=== PATIENT | female | born 1940 | race African-American/Black ===

== ENCOUNTER 2017-10-28 08:53 | Emergency (ER) | payer MEDICARE, OTHER ==
[2017-10-28] MEDS ORDERED: NS 0.9% 1000 ML* 1,000 ML IV ONE (09:33)
[2017-10-28 10:31] LABS: Hematocrit 39 % (35-47); Hemoglobin 12.9 g/dl (12.0-16.0); Mean Corpuscular HGB Conc 33 g/dl (31-36); Mean Corpuscular Hemoglobin 29 pg (27-31); Mean Corpuscular Volume 86 fL (80-97); Mean Platelet Volume 9 um3 (7.4-10.4); Platelet Count 152 10^3/ul (150-450); Red Blood Count 4.47 10^6/ul (4.0-5.4); Red Cell Distribution Width 14 % (10.5-15); White Blood Count 3.2 10^3/ul (3.5-10.8)
--- NOTE | 2017-10-28 10:44 | RAD ---
Indication: Multiple hours abdominal pain. Comparison: May 01, [address] Technique: RIGHT upper quadrant ultrasound. Report: Appropriate direction flow documented in the portal and hepatic veins. 13.4 cm liver is heterogeneously echogenic. Negative for focal hepatic lesions. Negative for intrahepatic biliary dilatation. 5.4 mm common bile duct. Adequately distended gallbladder with normal 2.2 mm wall is without pathologic finding. Negative for sonographic Wright's sign. The pancreas is obscured secondary to bowel gas and body habitus limiting assessment. Negative for ascites. 9.7 x 3.6 x 5.3 cm RIGHT kidney is unremarkable. IMPRESSION: 1. Heterogeneously increased hepatic echogenicity consistent with fatty infiltration. 2. Negative for gallbladder pathology or biliary dilatation. 3. The pancreas could not be visualized due to body habitus and visualized due to body habitus limiting acoustic window.
[2017-10-28 10:57] LABS: EGFR Non-African American 68.6 (>60)
[2017-10-28] MEDS ORDERED: Iohexol 300* (CONTRAST) 10 ML SDV IV ONE (11:38)
[2017-10-28 11:39] LABS: ABS Basophils 0 10^3/ul (0-0.2); ABS Eosinophils 0 10^3/ul (0-0.6); ABS Lymphocytes 0.7 10^3/ul (1.0-4.8); ABS Monocytes 0.2 10^3/ul (0-0.8); ABS Neutrophils 2.2 10^3/ul (1.5-7.7); ABS Nucleated RBC 0 10^3/ul; Eosinophil % 0.8 % (0-6); Lymphocyte % 23.2 % (25-47); Nucleated Red Blood Cells % 0.1
[2017-10-28 12:30] LABS: Urine Appearance Cloudy; Urine Blood Negative (Negative); Urine Color Yellow; Urine Ketones 1+ (Negative); Urine Protein Negative (Negative); Urine Specific Gravity 1.019 (1.010-1.030); Urine Urobilinogen Negative (Negative)
--- NOTE | 2017-10-28 13:18 | RAD ---
CLINICAL HISTORY: Abdominal pain COMPARISON: May 01, 2015 TECHNIQUE: Multiple contiguous axial CT scans were obtained of the abdomen and pelvis after the administration of intravenous contrast. Coronal and sagittal multiplanar reformations are submitted for review. Oral contrast was administered. Delayed images were obtained through the abdomen and pelvis. FINDINGS: LUNG BASES: The lung bases are clear. LIVER: The liver is diffusely low in attenuation compared to the spleen. There are no focal hepatic parenchymal masses. BILE DUCTS: There is no intrahepatic or extrahepatic biliary dilatation. GALLBLADDER: The gallbladder is normal, without pericholecystic inflammatory change. PANCREAS: The pancreas is normal, without mass or ductal dilatation. SPLEEN: Normal in size and appearance. UPPER GI TRACT: Evaluation of the gastrointestinal tract is limited by incomplete gastric distention. The upper GI tract is unremarkable. SMALL BOWEL AND MESENTERY: The small bowel is normal in contour, course, and caliber. There is no obstruction or dilatation. COLON: The colon is normal in contour, course, caliber. There is no pericolonic inflammatory change. The appendix is not clearly visualized. There is no inflammatory change within the right lower quadrant. ADRENALS: Normal bilaterally. KIDNEYS: The kidneys are normal in shape, size, contour, and axis. There is no hydronephrosis or nephrolithiasis. BLADDER: The bladder is incompletely distended but is grossly normal. PELVIC ORGANS: The pelvic organs are not visualized. AORTA: The aorta is normal. IVC: Unremarkable LYMPH NODES: There is no lymphadenopathy by size criteria. ABDOMINAL WALL: There is no evidence for abdominal wall hernia. BONES AND SOFT TISSUES: There are mild diffuse degenerative changes. OTHER: None IMPRESSION: NO OBSTRUCTION. NO ACUTE CT PATHOLOGY OF THE VISUALIZED ABDOMEN OR PELVIS.
[2017-10-28 13:56] VITALS: BP 144/69
--- NOTE | 2017-10-28 18:34 | ED ---
Pito Pugh Angela, scribed for Arnaldo Rubi MD on 10/28/17 at 0934 . Abdominal Pain/Female - HPI Summary HPI Summary: This pt is a 77 y/o female [facility]/o abdominal pain and right shoulder pain. She reports abdominal discomfort began around 04:00 this morning but thought it was indigestion and took OTC medication for this. Her abdominal pain began at 06:00 this morning. Pt describes her pain as cramping. Pt notes associated nausea. She denies vomiting, fever. PMHx: appendectomy. Pt still has her gallbladder. Allergic to Codeine and Morphine - History of Current Complaint Chief Complaint: EDAbdPain Stated Complaint: ABD PAIN Time Seen by Provider: 10/28/17 09:15 Hx Obtained From: Patient Onset/Duration: Lasting Hours, Still Present Timing: Hours Severity Currently: Severe Pain Intensity: 10 Pain Scale Used: 0-10 Numeric Location: Diffuse Radiates: No Character: Cramping Aggravating Factor(s): Nothing Alleviating Factor(s): Nothing Associated Signs and Symptoms: Positive: Nausea. Negative: Fever, Vomiting Allergies/Adverse Reactions: Allergies Allergy/AdvReac Type Severity Reaction Status Date / Time MS Codeine [Codeine] AdvReac Nausea And Verified 05/11/15 12:02 Vomiting MS Morphine [Morphine] AdvReac Nausea And Verified 05/11/15 12:02 Vomiting Home Medications: Home Medications Ibuprofen TAB* [Advil TAB*] 200 mg PO Q8H PRN 10/28/17 [History Confirmed ] Travoprost Z 0.004% OPHTH (NF) [Travatan Z 0.004% OPTH (NF)] 1 drop BOTH EYES DAILY 10/28/17 [History Confirmed 10/28/17] PMH/Surg Hx/FS Hx/Imm Hx Endocrine/Hematology History: Denies: Hx Diabetes, Hx Thyroid Disease Cardiovascular History: Denies: Hx Hypertension Respiratory History: Denies: Hx Asthma, Hx Chronic Obstructive Pulmonary Disease (COPD) GI History: Denies: Hx Ulcer History: Reports: Hx Kidney Stones - RIGHT 03/28 - Surgical History Surgery Procedure, Year, and Place: Hysterectomy, Arthroscopy both knees Infectious Disease History: No Infectious Disease History: Denies: Hx Clostridium Difficile, Hx Hepatitis, Hx Human Immunodeficiency Virus (HIV), Hx of Known/Suspected MRSA, Hx Shingles, Hx Tuberculosis, Hx Known/ Suspected VRE, Hx Known/Suspected VRSA, History Other Infectious Disease, Traveled Outside the [place] in Last 30 Days - Family History Family History: Maternal grandmother, mother and sister: Breast CA. Father: colon CA. Mother and sister: arthritis - Social History Alcohol Use: Rare Substance Use Type: Reports: None Smoking Status (MU): Never Smoked Tobacco Review of Systems Negative: Fever, Chills Positive: Abdominal Pain, Nausea. Negative: Vomiting Musculoskeletal: Other - right shoulder pain All Other Systems Reviewed And Are Negative: Yes Physical Exam - Summary Physical Exam Summary: VITAL SIGNS: Reviewed. GENERAL: Patient is a well-developed and nourished female who is lying comfortable in the stretcher. Patient is not in any acute respiratory distress. HEAD AND FACE: Normocephalic and atraumatic. EYES: PERRLA, EOMI x 2, No injected conjunctiva. EARS: Hearing grossly intact. Ear canals and tympanic membranes are WNL. MOUTH: Oropharynx within normal limits. NECK: Supple, trachea is midline, no adenopathy, no JVD. CHEST: Symmetric, no tenderness at palpation LUNGS: Clear to auscultation bilaterally. No wheezing or crackles. CVS: RRR, S1 and S2 present, no murmurs or gallops appreciated. ABDOMEN: Soft. There is positive tenderness in the RUQ and epigastric area. There is mild guarding but no rebound. No signs of distention. Positive bowel sounds. No masses palpated. No abdominal bruit or pulsations. EXTREMITIES: FROM in all major joints, no edema, no cyanosis or clubbing. NEURO: Alert and oriented x 3. No acute neurological deficits. Speech is normal. SKIN: Dry and warm Triage Information Reviewed: Yes Vital Signs On Initial Exam: Initial Vitals Temp Pulse Resp BP Pulse Ox 98.3 F 66 20 162/79 99 10/28/17 09:00 10/28/17 09:00 10/28/17 09:00 10/28/17 09:00 10/28/17 09:00 Vital Signs Reviewed: Yes Diagnostics - Vital Signs Vital Signs Temp Pulse Resp BP Pulse Ox 10/28/17 09:00 98.3 F 66 20 162/79 99 - Laboratory Result Diagrams: 10/28/17 10:18 10/28/17 10:18 Lab Statement: Any lab studies that have been ordered have been reviewed, and results considered in the medical decision making process. - CT Abdomen/Pelvis CT CT Interpretation: No Acute Changes - IMPRESSION: No obstructoin. No acute CT pathology of the visualized abdomen or pelvis. Dr. Rubi has reviewed this radiology report. CT Interpretation Completed By: Radiologist - Ultrasound No standard instances Ultrasound Interpretation: Positive (See Comments) - IMPRESSION: 1. Heterogenously increased hepatic echogenicity consistent with fatty infiltration. 2. Negative for gallbladder pathology or biliary dilatation. 3. The pancreas could not be visualized due to body habitus and visualized due to body habitus limiting acoustic window. Dr. Rubi has reviewed this radiology report. Ultrasound Interpretation Completed By: Radiologist - EKG 09:33 Cardiac Rate: NL EKG Rhythm: Sinus Rhythm - at 68 bpm EKG Interpretation: No ST elevation. T wave inversion in III. Abdominal Pain Fem Course/Dx - Course Course Of Treatment: This pt is a 77 y/o female [facility]/o abdominal pain and right shoulder pain. She reports abdominal discomfort began around 04:00 this morning but thought it was indigestion and took OTC medication for this. Her abdominal pain began at 06:00 this morning. Pt describes her pain as cramping. Pt notes associated nausea. She denies vomiting , fever. PMHx: appendectomy. Pt still has her gallbladder. Allergic to Codeine and Morphine. Test results are without any significant abnormalities. Urinalysis is contaminated. RUQ ultrasound is negative for gallstones or acute cholecystitis. Abdomen/pelvis CT is negative for an acute pathology. The pts symptoms have improved. Pt has no complains. Pt is ambulating and eating and drinking without any nausea or vomiting. Pts will be discharged to home with a follow up from PCP. Pt is hemodynamically stable, alert and oriented x3. She was instructed to return to the ED for any worsening symptoms. - Diagnoses Provider Diagnoses: Abdominal pain Discharge - Discharge Plan Condition: Stable Disposition: HOME Patient Education Materials: Abdominal Pain (ED) Referrals: Glenn Valente MD [Primary Care Provider] - 3 Days Additional Instructions: Please follow up with your primary care provider. RETURN TO THE ED FOR ANY WORSENING SYMPTOMS. The documentation as recorded by the Pito christy Angela accurately reflects the service I personally performed and the decisions made by me, Arnaldo Rubi MD.
== END 2017-10-28 14:01 | disposition home or self-care (01) ==
LOC: ED 08:53
DX: R10.9 Unspecified abdominal pain (principal); R11.0 Nausea; M25.511 Pain in right shoulder
CPT/HCPCS: 36415; 74177; 76705; 80053; 81003; 81015; 82140; 82550; 83605; 83690; 83735; 83880; 84484; 85025; 86140; 87077; 87086; 93005; 99282; Q9967

== ENCOUNTER 2019-05-26 16:02 | Emergency (ER) | payer MEDICARE, OTHER ==
--- OUTSIDE RECORDS SUMMARY | 2019-05-26 16:12 | XMS REPORT | Summary of Care ---
:1940 Author Organization [facility] Address [address] [place] [address] Care Team Providers Name Role Phone Glenn Valente MD Primary Care Provider Reason for Visit Reason Comments Urinary Frequency c/o increase frequency, nocturia and left flank pain past several days, unable to give an urine sample as just went prior to coming here [employer] discuss her Encounter Details Date Type Department Care Team Description 04/27/2019 Office Visit [place] [facility] Glenn Valente MD Urinary frequency (Primary Dx); Medicine [address] [facility] Upper back pain on left side [address] [place] [address] [place] [address] [phone] Allergies Active Allergy Reactions Severity Noted Date Comments Cod-Na Metabisulfite GI Reaction, Unknown Reaction 09/01/2007 Morphine GI Reaction 09/24/2007 documented as of this encounter (statuses as of 05/02/2019) Medications Medication Sig Dispensed Refills Start Date End Date Status TRAVATAN 0.004 % Place 1 Drop 0 Active Ophthalmic in both eyes Solution DAILY. COLACE 100 MG Oral Take 100 mg by 0 Active Cap mouth DAILY NEEDED. sulfamethoxazole-t Take 1 Tab by 14 Tab 0 04/27/2019 Active rimethoprim mouth TWICE (BACTRIM DS, DAILY. SEPTRA DS) 800-160 MG Oral Tab Papaya Oral Tab Take 2-4 Tabs 0 04/27/2019 Discontinued by mouth DAILY. ibuprofen (MOTRIN) Take 1 Tab by 60 Tab 0 08/06/2016 04/27/2019 Discontinued 600 MG Oral Tab mouth EVERY EIGHT HOURS NEEDED for Pain. Take 1 po bid with meals ibuprofen (MOTRIN) Take 1 Tab by 120 Tab 0 11/05/2018 04/27/2019 Discontinued 600 MG Oral Tab mouth EVERY SIX HOURS NEEDED (pain). documented as of this encounter (statuses as of 05/02/2019) Active Problems Problem Noted Date High cholesterol 06/14/2018 Chronic pain of left knee 08/06/2016 Osteopenia 09/24/2007 Irritable bowel syndrome 09/01/2007 Degeneration of cervical intervertebral disc 08/27/2006 Sarcoidosis 08/27/2006 Colon polyp Overview: tubular adenoma 2006 documented as of this encounter (statuses as of 05/02/2019) Immunizations Name Administration Dates Next Due Influenza Vaccine Whole 08/27/2006 Pneumococcal Conjugate Vaccine 08/14/2005 documented as of this encounter Social History Tobacco Use Types Packs/Day Years Used Date Never Smoker Smokeless Tobacco: Never Used Alcohol Use Drinks/Week oz/Week Comments Yes 7 Standard drinks or equivalent 7.0 Sex Assigned at Date Recorded Not on file Job Start Date Occupation Industry Not on file Not on file Not on file Travel History Travel Start Travel End No recent travel history available. documented as of this encounter Last Filed Vital Signs Vital Sign Reading Time Taken Comments Blood Pressure 122/70 04/27/2019 4:36 PM EDT Pulse 66 04/27/2019 4:36 PM EDT Temperature 36.2 04/27/2019 4:36 PM EDT C (97.1 F) Respiratory Rate - - Oxygen Saturation - - Inhaled Oxygen Concentration - - Weight 62.1 kg (137 lb) 04/27/2019 4:36 PM EDT Height 162.6 cm (5' 4") 04/27/2019 4:36 PM EDT Body Mass Index 23.52 04/27/2019 4:36 PM EDT documented in this encounter Patient Instructions Patient InstructionsGlenn Valente MD - 04/27/2019 4:40 PM EDTContinue same medicines, but also take antibiotic trimethoprim / sulfa, 1 tab twice a day for 1 week Return for upper back xrays. I'll notify you of the results with a letter or an e-mail (if you are registered with the [employer] service). We may also need to do upper back MRI, but let's see what the antibiotic accomplishes, and what the upper back xrays show. documented in this encounter Progress Notes Glenn Valente MD - 04/27/2019 4:40 PM EDT PATIENT: Gaby Plata : 1940 DATE OF SERVICE: 04/27/2019 CHIEF COMPLAINT: Chief Complaint Patient presents with Urinary Frequency c/o increase frequency, nocturia and left flank pain past several days, unable to give an urine sample as just went prior to coming here [employer] discuss her Subjective HISTORY OF PRESENT ILLNESS: Gaby Plata is a 78-y.o. female. HPI Under extra stress with caring for her chronically ill who has Parkinson 's disease and multiple myeloma. Chronic frequency. Wears a pad. Frequency much worse in last few days. "Not all the time" with burning. Not today. No blood. Urine more pale, trying to drink more. No fever, chills, sweats. More gas, taking simethacone. Has lost weight, not eating as much. prob due to stress. Husb with myeloma, Parkinson's. Has chronic left sided back pain, worse with siting, sometimes has to lie down. Getting worse, now can't drive nearly as far without getting pain. Past Medical History: Diagnosis Date Colon polyp tubular adenoma 2006 Degeneration of cervical intervertebral disc 08/27/[address] Sanchez Irritable bowel syndrome 09/01/2007 Postmenopausal Sarcoidosis 08/27/2006 confirmed by skin biopsy, mediastinal l/nodes Family History Problem Relation Age of Onset Cancer Mother 60s Stroke Mother Hypertension Mother Breast Cancer Mother Cancer Father colon cancer Colon Cancer Father Cancer Sister breast cancer Stroke Sister Breast Cancer Maternal Grandmother 80s Breast Cancer Sister 60s Current Outpatient Medications Medication Sig COLACE 100 MG Oral Cap Take 100 mg by mouth DAILY NEEDED. TRAVATAN 0.004 % Ophthalmic Solution Place 1 Drop in both eyes DAILY. No current facility-administered medications for this visit. Allergies Allergen Reactions Cod-Na Metabisulfite GI Reaction and Unknown Reaction Morphine GI Reaction Social History Socioeconomic History Marital status: Spouse name: Not on file Number of children: Not on file Years of education: Not on file Highest education level: Not on file Occupational History Not on file Social Needs Financial resource strain: Not on file Food insecurity: Worry: Not on file Inability: Not on file Transportation needs: Medical: Not on file Non-medical: Not on file Tobacco Use Smoking status: Never Smoker Smokeless tobacco: Never Used Substance and Sexual Activity Alcohol use: Yes Alcohol/week: 7.0 standard drinks Types: 7 Standard drinks or equivalent per week Drug use: No Sexual activity: Not Currently Lifestyle Physical activity: Days per week: Not on file Minutes per session: Not on file Stress: Not on file Relationships Social connections: Talks on phone: Not on file Gets together: Not on file Attends sabianist service: Not on file Active member of club or organization: Not on file Attends meetings of clubs or organizations: Not on file Relationship status: Not on file Intimate partner violence: Fear of current or ex partner: Not on file Emotionally abused: Not on file Physically abused: Not on file Forced sexual activity: Not on file Other Topics Concern Not on file Social History Narrative Not on file Over the last 2 weeks, have you been feeling down, depressed, anxious, or hopeless?: 2 Over the past 2 weeks, have you felt little interest or pleasure in doing things ?: 0 REVIEW OF SYSTEMS: Review of Systems Constitutional: Positive for malaise/fatigue. Negative for fever and weight loss. HENT: Negative for congestion. Eyes: Negative for blurred vision. Respiratory: Negative for shortness of breath. Cardiovascular: Negative for chest pain. Gastrointestinal: Negative for abdominal pain and diarrhea. Genitourinary: Positive for frequency. Musculoskeletal: Positive for back pain. Neurological: Negative for dizziness. Endo/Heme/Allergies: Negative for polydipsia. Psychiatric/Behavioral: Negative for depression. Objective PHYSICAL EXAM: VITALS: BP 122/70 | Pulse 66 | Temp 97.1 F (36.2 C) | Ht 5' 4" ( 1.626 m) | Wt 137 lb (62.1 kg) | BMI 23.52 kg/m Body mass index is 23.52 kg/m. Physical Exam Alert, oriented, in no acute distress. Vitals as above. HEENT: Normocephalic, atraumatic. COURTNEY, EOMI. Mouth and ears unremarkable. Neck: No palpable lymphadenopathy in the submandibular, submental, anterior cervical, posterior cervical, or occipital chains, nor in the supraclavicular spaces. No JVD, thyromegaly. LUNGS: clear. Tender left subscapular area and paravertebral area in the mid thoracic spine HEART: Regular rate and rhythm. ABDOMEN: positive bowel sounds, soft, nontender, no hepatosplenomegaly, masses or bruits. EXTREMITIES: no cyanosis, clubbing, or edema. Urinalysis with white cells, trace of protein Office Visit on 04/27/2019 Component Date Value Ref Range Status URINE GLUCOSE (POCT) 04/27/2019 Negative Negative mg/dl Final URINE BILIRUBIN (POCT) 04/27/2019 Small* Negative Final Urine Ketones (POCT) 04/27/2019 Trace* Negative Final URINE SPECIFIC GRAVITY (POCT) 04/27/2019 1.025 1.005 - 1.030 Final URINE BLOOD (POCT) 04/27/2019 Small* Negative Final URINE PH (POCT) 04/27/2019 5.0 5.0 - 8.0 Final URINE PROTEIN (POCT) 04/27/2019 Trace* Negative mg/dl Final URINE UROBILINOGEN (POCT) 04/27/2019 0.2 0.2 - 1.0 mg/dl Final URINE NITRITES (POCT) 04/27/2019 Negative Negative Final URINE LEUKOCYTES (POCT) 04/27/2019 Moderate* Negative Cells/uL Final Urine Culture 04/27/2019 No growth of clinical significance Final ASSESSMENT / IMPRESSION: ICD-9-CM ICD-10-CM 1. Urinary frequencytreat with Bactrim 788.41 R35.0 URINE DIP MANUAL (AMB POCT) URINE CULTURE (C&S) URINE CULTURE (C&S) 2. Upper back pain on left sidecheck x-rays 724.5 M54.9 XR THORACIC SPINE 3 VIEWS (STANDARD) Patient Instructions Continue same medicines, but also take antibiotic trimethoprim / sulfa, 1 tab twice a day for 1 week Return for upper back xrays. I'll notify you of the results with a letter or an e-mail (if you are registered with the [employer] communication service). We may also need to do upper back MRI, but let's see what the antibiotic accomplishes, and what the upper back xrays show. Author: Glenn Valente MD 04/27/2019 17:02 documented in this encounter Plan of Treatment Date Type Specialty Care Team Description 10/25/2019 Lab Internal Medicine 11/01/2019 Office Visit Internal Medicine Glenn Valente MD [address] [place] [address] [phone] Health Maintenance Due Date Last Done Comments ZOSTER IMMUNIZATION SERIES 1990 (1 of 2) PNEUMOCOCCAL 65+YRS (2 of 2 08/14/2006 08/14/2005 - PPSV23) MEDICARE ANNUAL WELLNESS 02/02/2016 02/01/2015 (Previously VISIT completed), 05/31/2013, 04/04/2011 INFLUENZA VACCINE (#1) 2019 08/27/2006 DEPRESSION SCREENING 04/27/2020 04/27/2019 FALL RISK ASSESSMENT 04/27/2020 04/27/2019, 04/27/2019 OSTEOPOROSIS SCREENING 06/07/2023 06/07/2013, 12/13/2007 LIPID DISORDER SCREENING 09/17/2023 09/17/2018, 10/08/2017, 10/10/2014, Additional history exists HPV IMMUNIZATION SERIES Aged Out No longer eligible based on patient's age to complete this topic MENINGOCOCCAL VACCINE IMM Aged Out No longer eligible based on patient's age to complete this topic documented as of this encounter Procedures Procedure Name Priority Date/Time Associated Diagnosis Comments URINE DIP MANUAL Routine 04/27/2019 5:20 PM Urinary frequency Results for this (AMB POCT) EDT procedure are in the results section. URINE CULTURE (C&S) Routine 04/27/2019 5:20 PM Urinary frequency Results for this EDT procedure are in the results section. documented in this encounter Results XR THORACIC SPINE 3 VIEWS (STANDARD) (04/28/2019 2:03 PM EDT) Specimen Impressions Performed At No evidence of fracture or subluxation is seen. Some endplate changes are seen without evidence of compression deformity. Mild dextroscoliosis of thoracic spine. Urgency: Routine. This is a routine medical imaging report.: Recommendation: No specific imaging recommendation. Signed by Javi Payton MD, MHA, FCPS on 05/02/2019 11:53 AM Narrative Performed At Procedure(s): XR THORACIC SPINE 3 VIEWS (STANDARD) Date of service: 04/28/2019 1:56 PM Provided clinical information: 78 years, Female, "upper back and left scapular pain" Procedure and materials: Standard protocol. Comparison studies: Chest x-ray of 02/01/2015 03 VIEWS OF THE THORACIC SPINE: Observation: AP, lateral, and swimmer's views of the thoracic spine demonstrate no evidence of fracture, subluxation or destructive osseous pathology. Mild dextroscoliosis is seen of thoracic spine. The vertebral bodies, disc spaces, facet joints, spinal canal and neural foramen are within normal limits. The paravertebral soft tissues are intact. Visualized lung appears clear. Atherosclerotic disease of the aorta. Tracheal cartilage calcification is seen Procedure Note Interface, Rad Results - 05/02/2019 11:55 AM EDT Procedure(s): XR THORACIC SPINE 3 VIEWS (STANDARD) Date of service: 04/28/2019 1:56 PM Provided clinical information: 78 years, Female, "upper back and left scapular pain" Procedure and materials: Standard protocol. Comparison studies: Chest x-ray of 02/01/2015 03 VIEWS OF THE THORACIC SPINE: Observation: AP, lateral, and swimmer's views of the thoracic spine demonstrate no evidence of fracture, subluxation or destructive osseous pathology. Mild dextroscoliosis is seen of thoracic spine. The vertebral bodies, disc spaces, facet joints, spinal canal and neural foramen are within normal limits. The paravertebral soft tissues are intact. Visualized lung appears clear. Atherosclerotic disease of the aorta. Tracheal cartilage calcification is seen IMPRESSION No evidence of fracture or subluxation is seen. Some endplate changes are seen without evidence of compression deformity. Mild dextroscoliosis of thoracic spine. Urgency: Routine. This is a routine medical imaging report.: Recommendation: No specific imaging recommendation. Signed by Javi Payton MD, MHA, FCPS on 05/02/2019 11:53 AM URINE CULTURE (C&S) (04/27/2019 5:20 PM EDT) Urine Culture No growth of clinical [facility] Specimen Urine Performing Organization Address City/State/Zipcode Phone Number [facility] [address] [place] [address] URINE DIP MANUAL (AMB POCT) (04/27/2019 5:20 PM EDT) URINE GLUCOSE (POCT) Negative Negative mg/dl [facility] POCT URINE BILIRUBIN Small (A) Negative [facility] (POCT) POCT Urine Ketones (POCT) Trace (A) Negative [facility] POCT URINE SPECIFIC 1.025 1.005 - 1.030 [facility] GRAVITY (POCT) POCT URINE BLOOD (POCT) Small (A) Negative [facility] POCT URINE PH (POCT) 5.0 5.0 - 8.0 [facility] POCT URINE PROTEIN (POCT) Trace (A) Negative mg/dl [facility] POCT URINE UROBILINOGEN 0.2 0.2 - 1.0 mg/dl [facility] (POCT) POCT URINE NITRITES Negative Negative [facility] (POCT) POCT URINE LEUKOCYTES Moderate (A) Negative [facility] (POCT) Cells/uL POCT Specimen Urine Performing Organization Address City/State[facility] [address] [place] [address] documented in this encounter Visit Diagnoses Diagnosis Urinary frequency - Primary Upper back pain on left side Pain in thoracic spine documented in this encounter Insurance Payer Benefit Plan / Subscriber ID Effective Dates Phone Address Type Group MEDICARE MEDICARE PART A xxxxxxxxxxx 2005-Presen Medicare & B t AETNA COMMERCIAL AETNA xxxxxxxxxx 2009-Present [employer] (Work) documented as of this encounter
--- NOTE | 2019-05-26 17:31 | ED ---
Back Pain - HPI Summary HPI Summary: 78 yo female presents to [facility] ED with a soft tissue lump on her left midback. She tells me that she has a history of chronic mid and lower back pain for years. She had an MRI about a week ago and a few days ago was told that the results were "age related" and there was nothing acute. She was referred to a pain clinic for this and is awaiting an appointment. Today she noticed a lump to her left mid back that concerned her. This is not painful, but she has not noticed this before and is concerned this is related to her back. She denies new injury, numbness, tingling, saddle anesthesia, loss of bowel/bladder control. No personal hx of cancer. - History of Current Complaint Chief Complaint: EDBackInjuryPain Stated Complaint: LUMP ON BACK PER PT Time Seen by Provider: 05/26/19 17:31 Hx Obtained From: Patient Timing: Constant Severity Initially: Moderate Severity Currently: Moderate Pain Intensity: 5 Pain Scale Used: 0-10 Numeric - Allergies/Home Medications Allergies/Adverse Reactions: Allergies Allergy/AdvReac Type Severity Reaction Status Date / Time codeine AdvReac Nausea And Verified 05/26/19 16:04 Vomiting morphine AdvReac Numbness Verified 05/26/19 16:04 And Tingling PMH/Surg Hx/FS Hx/Imm Hx Endocrine/Hematology History: Denies: Hx Diabetes, Hx Thyroid Disease Cardiovascular History: Denies: Hx Hypertension Respiratory History: Denies: Hx Asthma, Hx Chronic Obstructive Pulmonary Disease (COPD) GI History: Denies: Hx Ulcer History: Reports: Hx Kidney Stones - RIGHT 03/28 Neurological History: Denies: Hx CVA, Hx Headaches, Hx Migraine Psychiatric History: Denies: Hx Anxiety - Surgical History Surgical History: Yes Surgery Procedure, Year, and Place: Hysterectomy, Arthroscopy both knees Infectious Disease History: No Infectious Disease History: Denies: Hx Clostridium Difficile, Hx Hepatitis, Hx Human Immunodeficiency Virus (HIV), Hx of Known/Suspected MRSA, Hx Shingles, Hx Tuberculosis, Hx Known/ Suspected VRE, Hx Known/Suspected VRSA, History Other Infectious Disease, Traveled Outside the [place] in Last 30 Days - Family History Known Family History: Positive: Other Family History: Maternal grandmother, mother and sister: Breast CA. Father: colon CA. Mother and sister: arthritis - Social History Occupation: Retired Lives: With Family Alcohol Use: Rare Substance Use Type: Reports: None Smoking Status (MU): Never Smoked Tobacco Review of Systems Constitutional: Negative Cardiovascular: Negative Respiratory: Negative Gastrointestinal: Negative Genitourinary: Negative Musculoskeletal: Other - Back pain chronic Skin: Other - Soft tissue lump left mid back Neurological: Negative Psychological: Normal All Other Systems Reviewed And Are Negative: No Physical Exam - Summary Physical Exam Summary: GENERAL: NAD. WDWN. No pain distress. SKIN: Overlying the soft tissue of the left posterior ribs there is a 2.0cm soft mobile nodule. NTTP. No erythema, induration, drainage, or open wound. NECK: Supple. Nontender. No lymphadenopathy. CHEST: CTAB. No r/r/w. No accessory muscle use. Breathing comfortably and in no distress. CV: RRR. Without m/r/g. Pulses intact. Brisk cap refill. MSK: FROM and 5/5 strength throughout. No edema. NEURO: Alert. PSYCH: Age appropriate behavior. Triage Information Reviewed: Yes Vital Signs On Initial Exam: Initial Vitals Temp Pulse Resp BP Pulse Ox 98.1 F 79 15 155/95 99 05/26/19 16:03 05/26/19 16:03 05/26/19 16:03 05/26/19 16:03 05/26/19 16:03 Vital Signs Reviewed: Yes Diagnostics - Vital Signs Vital Signs Temp Pulse Resp BP Pulse Ox 05/26/19 16:03 98.1 F 79 15 155/95 99 - Laboratory Lab Statement: Any lab studies that have been ordered have been reviewed, and results considered in the medical decision making process. - Radiology US soft tissue Radiology Interpretation Completed By: Radiologist Summary of Radiographic Findings: FINDINGS: Imaging over the area of interest demonstrates a well-defined lesion measuring 4.1 x 1.3 x 5.0 cm. No increased vascularity is demonstrated. IMPRESSION: Possible lipoma. RECOMMENDATION: 1. More specific tissue characterization could be obtained with MR if clinically indicated. CXR Radiology Interpretation Completed By: Radiologist Summary of Radiographic Findings: IMPRESSION: NO EVIDENCE FOR ACTIVE CARDIOPULMONARY DISEASE. Back Pain Course/Dx - Course Course Of Treatment: Discussed US results with pt. Advised to f/u with General Surgeon regarding lipoma for possible excision or biopsy. Advised to continue with PCP and pain clinic for her chronic back pain. - Diagnoses Provider Diagnoses: Lipoma Discharge ED - Sign-Out/Discharge Documenting (check all that apply): Patient Departure Patient Received Moderate/Deep Sedation with Procedure: No - Discharge Plan Condition: Stable Disposition: HOME Patient Education Materials: Lipoma (ED) Referrals: Glenn Valente MD [Primary Care Provider] - Camilo Montoya MD [Medical Doctor] - As Soon As Possible Additional Instructions: If you develop a fever, shortness of breath, chest pain, new or worsening symptoms - please call your PCP or go to the ED immediately. Your blood pressure was high at todays visit. Please see your primary provider within 4 weeks for recheck and re-evaluation. Your ultrasound of the lump in your back appears to be most consistent with a lipoma (soft tissue fat collection). I recommend that you follow up with a general surgeon at the number below within the next 1-2 weeks for further treatment of the area. Regarding your continued back pain - please follow up with your primary doctor and the pain clinic as instructed - Billing Disposition and Condition Condition: STABLE Disposition: Home - Attestation Statements Provider Attestation: I was available for consult. This patient was seen by the [facility]. The patient was not presented to, seen by, or examined by me. Rj Harris MD
[2019-05-26 20:01] VITALS: BP 109/70
== END 2019-05-26 20:00 | disposition home or self-care (01) ==
LOC: ED 16:02
DX: D17.1 Benign lipomatous neoplasm of skin and subcutaneous tissue of trunk (principal); Z88.5 Allergy status to narcotic agent
CPT/HCPCS: 71046; 76705; 99282

== ENCOUNTER 2022-10-10 23:03 | Observation (INO) ==
[2022-10-11 01:13] LABS: ABS Eosinophils 0.1 10^3/ul (0-0.6); ABS Lymphocytes 0.9 10^3/ul (1.0-4.8); ABS Monocytes 0.4 10^3/ul (0-0.8); ABS Neutrophils 2.1 10^3/ul (1.5-7.7); Eosinophil % 1.9 %; Hematocrit 36 % (35-47); Hemoglobin 11.4 g/dL (12.0-16.0); Lymphocyte % 26.6 %; Mean Corpuscular HGB Conc 32 g/dL (31-36); Mean Corpuscular Hemoglobin 27 pg (27-31); Mean Corpuscular Volume 86 fL (80-97); Mean Platelet Volume 8.3 fL (7.4-10.4); Nucleated Red Blood Cells % 0.1; Platelet Count 202 10^3/uL (150-450); Red Blood Count 4.17 10^6 /uL (3.70-4.87); Red Cell Distribution Width 14 % (10-15); White Blood Count 3.4 10^3/uL (3.5-10.8)
[2022-10-11 01:18] LABS: INR 0.97 (0.88-1.18)
[2022-10-11 02:22] LABS: Albumin 3.9 g/dL (3.2-5.2); Albumin/Globulin Ratio 1.4 (1-3); Creatinine, Serum 0.78 mg/dL (0.51-0.95); Globulin 2.7 g/dL (2-4); Potassium 4.2 mmol/L (3.5-5.0); Total Bilirubin 0.3 mg/dL (0.2-1.0); Total Protein 6.6 g/dL (6.4-8.9); eGFR CKD-EPI 75.8 (>60)
[2022-10-11 02:37] LABS: High Sensitivity Troponin 1 Hr 4 pg/mL (<15)
[2022-10-11] MEDS: Enoxaparin 40 MG/0.4 ML SYR SUBCUT SCH (08:32)
[2022-10-11 09:59] LABS: HDL Cholesterol 91.3 mg/dL
[2022-10-11] MEDS: Timolol 0.5% OPTH.SOL BTL BOTH EYES SCH ×2 (10:09→20:53)
[2022-10-11 14:41] LABS: Urine Appearance Clear; Urine Bilirubin Negative (Negative); Urine Blood Negative (Negative); Urine Color Straw; Urine Glucose Negative (Negative); Urine Ketones Negative (Negative); Urine Nitrite Negative (Negative); Urine Protein Negative (Negative); Urine Specific Gravity 1.008 (1.002-1.030); Urine Urobilinogen Negative (Negative)
[2022-10-11 14:45] LABS: Urine Bacteria Absent (Absent); Urine Red Blood Cell Trace(0-2/hpf) (Absent); Urine White Blood Cell 1+(6-10/hpf) (Absent); Urine Yeast Present (Absent)
[2022-10-11] MEDS: Polyethylene Glycol 3350 17 GM PACKET PO SCH (20:51)
[2022-10-11] MEDS: Senna TAB 8.6 mg TAB PO PRN (20:52)
[2022-10-12] MEDS: Enoxaparin 40 MG/0.4 ML SYR SUBCUT SCH (05:55)
[2022-10-12] MEDS: Polyethylene Glycol 3350 17 GM PACKET PO SCH (08:11)
[2022-10-12] MEDS: Timolol 0.5% OPTH.SOL BTL BOTH EYES SCH ×3 (10:20→20:43)
[2022-10-12] MEDS: Senna TAB 8.6 mg TAB PO PRN (20:43)
[2022-10-12] MEDS ORDERED: Magnesium Hydroxide LIQ 30 ML UDC PO PRN (20:46)
[2022-10-13] MEDS: Enoxaparin 40 MG/0.4 ML SYR SUBCUT SCH (06:38)
[2022-10-13] MEDS: Timolol 0.5% OPTH.SOL BTL BOTH EYES SCH (08:48)
[2022-10-13] MEDS: Polyethylene Glycol 3350 17 GM PACKET PO SCH (08:49)
[2022-10-13 11:13] VITALS: BP 116/54
== END 2022-10-13 14:00 | disposition home or self-care (01) ==
LOC: ED 23:03 → EDHOLD 23:03 → SUATTDRO 10-11 03:47 → MEDTELE 10-11 08:01
PROVIDERS: ADMIT Student in an Organized Health Care Education/Training Program; ATTEND Internal Medicine